=== PATIENT | male | born 1980 | race African-American/Black ===

== ENCOUNTER 2022-12-21 18:37 | Emergency (ER) | payer OTHER ==
[2022-12-21 18:42] VITALS: BP 99/54; PULSE 81; RESP 18; TEMP 97; BMI 24.9
== END 2022-12-21 19:37 | disposition home or self-care (01) ==
LOC: JERFT 18:37
DX: M25.511 Pain in right shoulder (principal); G89.29 Other chronic pain
CPT/HCPCS: 73030-TC-RT-FY; 99283-25